=== PATIENT | female | born 1990 | race Caucasian/White ===

== ENCOUNTER 2017-02-15 01:30 | Inpatient (IN) | payer OTHER ==
[~2017-02-15] VITALS: Ht 167.6 cm; Wt 80.3 kg
[~2017-02-15 01:30] MED LIST: FEG324 PO; HYDR-4150 PO; IBUP-1827 PO; PNV1TABL9 PO
[2017-02-15] MEDS ORDERED: Lactated Ringer's 1,000 ML IV PRN (02:42)
[2017-02-15] MEDS ORDERED: fentaNYL-PF 50 mCg/mL 2 mL Inj IVPUSH PRN ×2 (02:45→03:00)
[2017-02-15] MEDS ORDERED: Carboprost 250 mCg/mL Inj IM PRN ×2 (02:45→03:50)
[2017-02-15] MEDS ORDERED: Oxytocin 30 Units/500 mL LR 30 UNITS in IV Premix 1 EACH IV PRN (02:45)
[2017-02-15] MEDS ORDERED: Sodium Chloride LOK Flush 10 mL Syringe IVFLUSH PRN (02:45)
[2017-02-15] MEDS ORDERED: Oxytocin 10 Unit/mL Inj IM PRN ×2 (02:45→03:50)
[2017-02-15] MEDS ORDERED: Hemorrhage Kit, Post Partum XX ONE ×2 (02:45→03:50)
[2017-02-15] MEDS ORDERED: Methylergonovine 0.2 mg/mL Inj IM PRN ×2 (02:45→03:50)
[2017-02-15 02:46] LABS: Mean Corpuscular Hemoglobin 26.1 pg (27.0-35.0); Mean Corpuscular Volume 77.9 fL (81-100)
[2017-02-15] MEDS ORDERED: Lactated Ringer's 500 ML IV ONE (02:56)
[2017-02-15] MEDS ORDERED: Atropine 1 mg/10 mL (Code) Syringe IVPUSH PRN (03:00)
[2017-02-15] MEDS ORDERED: EPHEDrine Sulfate 50 mg/mL Inj IVPUSH PRN (03:00)
[2017-02-15] MEDS ORDERED: Ondansetron 2 mg/mL 2 mL Inj IVPUSH PRN (03:00)
[2017-02-15] MEDS ORDERED: Phenylephrine/NS-PF 100 mCg/mL 5 mL Syringe IVPUSH PRN (03:00)
[2017-02-15] MEDS ORDERED: fentaNYL 2 mCg/mL-Bupiv 0.125% 100 ML EPIDURAL SCH (03:00)
[2017-02-15] MEDS ORDERED: Benzocaine (Dermoplast) 20% 60 Gm Spray TOPICAL PRN (03:50)
[2017-02-15] MEDS ORDERED: HYDROcodone-APAP 5-325 mg Tablet PO PRN (03:50)
[2017-02-15] MEDS ORDERED: LANOlin HPA 7 Gm Ointment TOPICAL PRN (03:50)
[2017-02-15] MEDS ORDERED: Witch Hazel-Glycerin Pads TOPICAL PRN (03:50)
--- NOTE | 2017-02-15 04:28 | OP ---
[address] [address] OPERATIVE REPORT PATIENT: KEEGAN BELTRÁN : 1990 MR#: [id number] ADMIT: 02/15/2017 JOB ID: [id number] DATE OF SURGERY: 02/15/2017 at 3:11 a.m. PREOPERATIVE DIAGNOSIS(ES): POSTOPERATIVE DIAGNOSIS(ES): SURGEON: Vijay Dorsey MD. DELIVERY SUMMARY: This 25-year-old, G 4, P 3, female at 40 weeks and 4 days estimated gestational age, delivered a vigorous male by normal vaginal delivery. The had scores of 7 and 8. The patient started labor at approximately 8 p.m. on February 14, 2017. Her labor became more active at 1 a.m. At that time she started coming to the hospital. When she arrived she ruptured her membranes spontaneously with clear fluid. The patient's labor progressed quickly and she was complete by approximately 3 a.m. She had a reactive and reassuring strip throughout but then started to have some terminal variable decelerations. She was pushing at this point, and on hands and knees. I had her change positions to her side. This seemed to help, and she pushed her baby out in relatively quick order. No nuchal cord was noted. On the other hand, a moderate amount of meconium was noted. The patient at no time had signs of infection. There were no fevers noted. She delivered across an intact perineum. Delayed cord clamping was observed due to the vigorous nature and crying of the . The cord was then clamped and cut, and the was additionally stimulated. Cord blood was sent for analysis. The placenta delivered approximately 7 minutes later spontaneously and intact with a three-vessel cord. The patient experienced modest blood loss of 200 cc initially, but then ended up having an additional roughly 400 cc of blood loss in the 20 minutes status post delivery. Her uterus firmed up with 10 units of Pitocin IM and 800 mcg of Cytotec rectally. Of note is that she had lost her IV during all the maneuvering for her delivery. This IV was not restarted and her bleeding tapered off. The patient's uterus was then found to be firm, her cervix intact and her rectum intact. Counts were correct x2. Significantly, the patient had two prior C-sections prior to her last delivery. This was also a delivery that was successful. There were no complications noted and the patient was in excellent condition following delivery.
[2017-02-15] MEDS: Lactated Ringer's 1,000 ML IV SCH ×4 (10:56→19:48)
[2017-02-15] MEDS: Sodium Chloride LOK Flush 10 mL Syringe IVFLUSH SCH (15:16)
[2017-02-16] MEDS: Sodium Chloride LOK Flush 10 mL Syringe IVFLUSH SCH (00:30)
[2017-02-16] MEDS: Lactated Ringer's 1,000 ML IV SCH ×2 (02:56→03:48)
[2017-02-16 06:25] LABS: Mean Corpuscular Hemoglobin 25.8 pg (27.0-35.0); Mean Corpuscular Volume 79.3 fL (81-100)
--- NOTE | 2017-02-16 07:32 | PCM.DC.OB ---
Obstetrical Discharge Summary Date of Service Feb 16, 2017 Date of hospital admission Feb 15, 2017 at 01:49 Date of Discharge: Feb 16, 2017 Providers Admitting Physician: Vijay Sharma MD Primary Care Physician: Vijay Sharma MD Attending Physician: Vijay Sharma MD Problems: (1) , delivered Onset Date: 07/19/2015 Status: Acute ICD Code: O34.219 Consultations None Invasive procedures delivery Date of Procedure: Feb 15, 2017 Hospital Course: Presented in labor. Delivered without incident. Recovered in excellent fashion. Ferrous Gluconate (Ferrous Gluconate) 324 Mg Tab 324 MG PO DAILY Prescribed by: VIJAY SHARMA MD Hydrocodone/Acetaminophen ([place] 5-325 Tablet) 1 Tablet Tablet 1-2 TABLET PO Q4H PRN PRN For Pain Prescribed by: VIJAY SHARMA MD Ibuprofen (Ibuprofen) 600 Mg Tablet 600 MG PO Q6H PRN PRN For Mild Pain Prescribed by: VIJAY SHARMA MD Pnv Cmb#21/Iron/Folic Acid ( Complete [place]) 1 Each Tablet 1 EACH PO ( Reported) Follow-up plan see me in six weeks. Discharge Diet: No restrictions Discharge Activity-General: Pelvic Rest for 6 weeks, Be up and about, Balance rest and activity, Activity as pain allows, Activity as energy allows, No lifting >15 pounds for 2 weeks Vijay Sharma MD Feb 16, 2017 07:32
--- NOTE | 2017-02-16 07:34 | PCM.DIOB ---
Obstetrical Disch Instruction Date of Service: Feb 16, 2017 Dates of Hospitalization Date of Hospital Admission Feb 15, 2017 at 01:49 Providers Admitting Physician: Vijay Dorsey MD Primary Care Physician: Vijay Dorsey MD Attending Physician: Vijay Dorsey MD Discharge Diagnosis Problems: (1) , delivered Onset Date: 07/19/2015 Status: Acute ICD Code: O34.219 Diet Discharge Diet: No restrictions Activity Discharge Activity-General: Pelvic Rest for 6 weeks, Be up and about, Balance rest and activity, Activity as pain allows, Activity as energy allows, No lifting >15 pounds for 2 weeks Dressing and Incisional Care Hygiene: May shower, Perineal care, Sitz bath, Dermoplast spray, Witch Kristina pads Follow Up Plan Follow-up Provider (F9): Vijay Dorsey MD Follow-up appointment: Weeks (6) Call your provider for: Fever or Chills, Heavy vaginal bleeding, Excessive constipation, Vaginal discomfort, Red painful breasts Vijay Dorsey MD Feb 16, 2017 07:34
[2017-02-16 09:15] VITALS: BP 152/83; PULSE 95; RESP 18
[2017-02-16] MEDS ORDERED: Oxytocin 10 Unit/mL Inj ONE (10:41)
== END 2017-02-16 10:42 | disposition home or self-care (01) | DRG 560 ==
LOC: FBCO 01:30 → FBC 01:49 → MERGE 01:49
PROVIDERS: ADMIT Family Medicine; ATTEND Family Medicine
PROC: 10E0XZZ Delivery of Products of Conception, External Approach (ICD-10-PCS; principal; 2017-02-15)
DX: O77.0 Labor and delivery complicated by meconium in amniotic fluid (principal); O62.3 Precipitate labor; Z3A.40 40 weeks gestation of pregnancy; Z37.0 Single live birth